=== PATIENT | male | born 1995 | race Hispanic/Latino ===

== ENCOUNTER 2017-04-27 03:00 | Emergency (ER) | payer OTHER, SELFPAY ==
[2017-04-27 03:15] VITALS: BP 127/69; PULSE 62; RESP 18; TEMP 97.5; O2SAT 100
--- NOTE | 2017-04-27 04:55 | ED PDOC ---
HPI: Psych/Substance Abuse Time Seen by Provider: 04/27/17 03:21 Chief Complaint (Nursing): Alcohol Ingestion Chief Complaint (Provider): Alcohol intoxication ED Caveat: Intoxicated History Per: EMS History/Exam Limitations: intoxication Additional Complaint(s): Raghu Hankins, a 22 year old male was brought into the Emergency Department by EMS intoxicated without any complaint of pain. Could not obtain past medical history or other information due to alcohol intoxication. PMD: Provider TBD Past Medical History Reviewed: Historical Data, Nursing Documentation, Vital Signs Vital Signs: Last Vital Signs Temp 97.5 F L 04/27/17 03:12 Pulse 62 04/27/17 03:12 Resp 18 04/27/17 03:12 BP 127/69 04/27/17 03:12 Pulse Ox 100 04/27/17 03:12 - Medical History PMH: No Chronic Diseases - Surgical History Surgical History: No Surg Hx - Family History Family History: States: No Known Family Hx - Social History Alcohol: Social - Home Medications Home Medications: Ambulatory Orders Medication Instructions Recorded No Known Home Med 04/27/17 - Allergies Allergies/Adverse Reactions: Allergies Allergy/AdvReac Type Severity Reaction Status Date / Time No Known Allergies Allergy Verified 04/27/17 03:12 Review of Systems ROS Statement: Except As Marked, All Systems Reviewed And Found Negative Constitutional: Negative for: Fever, Chills Neurological: Positive for: Incoordination, Other (alcohol intoxication) Physical Exam - Reviewed Nursing Documentation Reviewed: Yes Vital Signs Reviewed: Yes - Physical Exam Appears: Positive for: Well, No Acute Distress Head Exam: Positive for: ATRAUMATIC, NORMAL INSPECTION, NORMOCEPHALIC Skin: Positive for: Normal Color, Warm, Dry Eye Exam: Positive for: Normal appearance ENT: Positive for: Normal ENT Inspection, Other (nasal swelling with ecchymosis) Neck: Positive for: Normal, Painless ROM. Negative for: Decreased ROM Respiratory: Positive for: Normal Breath Sounds Extremity: Positive for: Normal ROM. Negative for: Deformity Neurologic/Psych: Positive for: Alert, Oriented (x3) - ECG O2 Sat by Pulse Oximetry: 100 (RA) Pulse Ox Interpretation: Normal Medical Decision Making Medical Decision Making: Time: 3:27 Initial Impression: -- 22 y/o male with alcohol intoxication and facial trauma Initial Plan: --Head W/O CT --Maxillofacial W/O CT --Alcohol Serum --Accucheck --Reevaluation Time:7:00 Patient to be signed to Dr. Orta pending sobriety Scribe Attestation: Documented by Mariah Umana, acting as a scribe for Francisco Javier Laura MD Provider Scribe Attestation: All medical record entries made by the Scribe were at my direction and personally dictated by me. I have reviewed the chart and agree that the record accurately reflects my personal performance of the history, physical exam, medical decision making, and the department course for this patient. I have also personally directed, reviewed, and agree with the discharge instructions and disposition. Disposition - Clinical Impression Clinical Impression: Alcohol abuse with intoxication, Nasal bone fracture - Disposition Disposition: Transfer of Care Disposition Time: 07:00 (Dr. Orta) Condition: STABLE Instructions: Nasal Fracture (ED), Alcohol Intoxication (ED) Forms: [id number] (Y[place]i)
--- NOTE | 2017-04-27 07:34 | ED PDOC ---
- ECG O2 Sat by Pulse Oximetry: 100 (RA) Medical Decision Making Medical Decision Makin:00 Patient endorsed to me by Dr. Laura pending sobriety. Scribe Attestation: Documented by Chrissy Antoine, acting as a scribe for Lilia Orta MD. Provider Scribe Attestation: All medical record entries made by the Scribe were at my direction and personally dictated by me. I have reviewed the chart and agree that the record accurately reflects my personal performance of the history, physical exam, medical decision making, and the department course for this patient. I have also personally directed, reviewed, and agree with the discharge instructions and disposition. Disposition Doctor Will See Patient In The: Office - Clinical Impression Clinical Impression: Alcohol abuse with intoxication, Nasal bone fracture - POA Present On Arrival: Falls Or Trauma - Disposition Disposition: Routine/Home Disposition Time: 09:00 Condition: STABLE Instructions: Nasal Fracture (ED), Alcohol Intoxication (ED) Forms: [employer] (Tajik)
--- NOTE | 2017-04-27 09:29 | CT ---
PROCEDURE: CT HEAD WITHOUT CONTRAST. HISTORY: Head injury. COMPARISON: Comparison made with concurrent CT scan maxillofacial skeleton. TECHNIQUE: Axial computed tomography images were obtained through the head/brain without intravenous contrast. Radiation dose: Total exam DLP = 1105.27 mGy-cm. This CT exam was performed using one or more of the following dose reduction techniques: Automated exposure control, adjustment of the mA and/or kV according to patient size, and/or use of iterative reconstruction technique. FINDINGS: HEMORRHAGE: No intracranial hemorrhage. BRAIN: No mass effect or edema. No atrophy or chronic microvascular ischemic changes. VENTRICLES: Unremarkable. No hydrocephalus. CALVARIUM: Unremarkable. PARANASAL SINUSES: Unremarkable as visualized. No significant inflammatory changes. MASTOID AIR CELLS: Unremarkable as visualized. No inflammatory changes. OTHER FINDINGS: None. IMPRESSION: Normal CT of the Head.
--- NOTE | 2017-04-27 10:06 | CT ---
PROCEDURE: CT MAXILLOFACIAL BONES WITHOUT CONTRAST HISTORY: facial trauma COMPARISON: Comparison made with concurrent CT scan brain TECHNIQUE: Contiguous axial CT images of the maxillofacial bones were obtained. Coronal and sagittal reformats were generated. Radiation dose: Total exam DLP = 679.39 mGy-cm. This CT exam was performed using one or more of the following dose reduction techniques: Automated exposure control, adjustment of the mA and/or kV according to patient size, and/or use of iterative reconstruction technique. FINDINGS: NASAL BONES: Bilateral nasal bone fractures with overlying soft tissue swelling. The nasal septum appears discontinuous posteriorly though this could be a anatomic variant versus fracture. . The. ; ORBITS: Orbits and contents grossly unremarkable. Globes intact and lenses appropriately located. There are no retrobulbar hemorrhages or collections. PARANASAL SINUSES/ MASTOIDS: Polypoid like mucosal thickening both maxillary antra. . MAXILLA: Intact. MANDIBLE/ TEMPOROMANDIBULAR JOINTS: Unremarkable. SKULL BASE: Unremarkable. TEMPORAL BONES: Middle ears and mastoid grossly unremarkable. OTHER FINDINGS: None. IMPRESSION: Bilateral nasal bone fracture deformities with overlying soft tissue swelling. .
== END 2017-04-27 09:11 | disposition home or self-care (01) ==
LOC: H.ER 03:00
DX: F10.129 Alcohol abuse with intoxication, unspecified (principal); S02.2XXA Fracture of nasal bones, initial encounter for closed fracture; Y90.8 Blood alcohol level of 240 mg/100 ml or more
CPT/HCPCS: 70450; 70486; 82948; 99283; G0480